=== PATIENT | male | born 1930 | race Caucasian/White ===

== ENCOUNTER 2019-03-10 14:04 | Outpatient (CLI) | payer MEDICARE, OTHER ==
[~2019-03-10 14:04] MED LIST: BARIUM SULFATE 340 ML SUSP.RECON***PROCEDURE AREA ONLY**DONT ENTER PO ONE
== END 2019-03-10 23:59 | disposition home or self-care (01) ==
LOC: RAD 14:04
PROVIDERS: ATTEND Family Medicine
DX: R13.14 Dysphagia, pharyngoesophageal phase (principal); K21.9 Gastro-esophageal reflux disease without esophagitis; Z79.899 Other long term (current) drug therapy
CPT/HCPCS: 74230